=== PATIENT | male | born 1975 | race Caucasian/White ===

== ENCOUNTER 2021-08-01 15:42 | Outpatient (CLI) | payer SELFPAY | END 2021-08-01 15:43 | disposition critical access hospital (66) | LOC: EMS 15:42 | DX: R11.0 Nausea (principal); R53.1 Weakness | CPT/HCPCS: A0425; A0429 ==

== ENCOUNTER 2021-08-01 16:02 | Emergency (ER) | payer SELFPAY ==
[2021-08-01] MEDS ORDERED: SODIUM CHLORIDE 0.9% 1,000 ML IV STA ×3 (16:22→19:10)
[2021-08-01] MEDS ORDERED: THIAMINE INJ 100 MG in SODIUM CHLORIDE 0.9% 50 ML IV STA (16:22)
[2021-08-01] MEDS ORDERED: THIAMINE INJ 100 MG, MAGNESIUM SULFATE 2 GM, MULTIVITAMIN 10 ML, FOLIC ACID INJ 1 MG in... IV ONE ×5 (16:22)
[2021-08-01] MEDS ORDERED: ONDANSETRON 4 MG/2 ML VIAL IVP STA (16:22)
[2021-08-01] MEDS ORDERED: FAMOTIDINE 20 MG/2 ML VIAL IVP STA (16:22)
[2021-08-01 16:38] LABS: BASOPHILS % (AUTO) 0.2 %; EOSINOPHILS % (AUTO) 0.2 %; HCT - HEMATOCRIT 21.3 % (42.0-52.0); HGB - HEMOGLOBIN 7.8 g/dL (14.0-18.0); LYMPHOCYTES # (AUTO) 1.5 10^3/uL (1.5-3.5); LYMPHOCYTES % (AUTO) 11.6 %; MEAN CORPUSCULAR HEMOGLOBIN 33.2 pg (27.0-31.0); MEAN CORPUSCULAR HGB CONC 36.6 g/dL (32.0-36.0); MEAN CORPUSCULAR VOLUME 90.6 fL (80.0-94.0); MEAN PLATELET VOLUME 9.7 fL (7.4-11.4); MONOCYTES # (AUTO) 0.8 10^3/uL (0.0-1.0); NEUTROPHILS # (AUTO) 10.8 10^3/uL (1.5-6.6); NEUTROPHILS % (AUTO) 81.5 %; PLT - PLATELET COUNT 85 10^3/uL (130-450); RED BLOOD COUNT 2.35 10^6/uL (4.70-6.10); RED CELL DISTRIBUTION WIDTH 18.4 % (12.0-15.0); WHITE BLOOD COUNT 13.2 x10^3/uL (4.8-10.8)
[2021-08-01] MEDS ORDERED: IOVERSOL 320 100 ML VIAL IVP ONE (16:40)
[2021-08-01 16:55] LABS: ALBUMIN 2.1 g/dL (3.2-5.5); ALBUMIN/GLOBULIN RATIO 0.6 (1.0-2.2); ALKALINE PHOSPHATASE 170 IU/L (42-121); ALT ALANINE AMINOTRANSFERASE 53 IU/L (10-60); AST ASPARTATE AMINOTRANSFERASE 168 IU/L (10-42); BILIRUBIN,TOTAL 18.5 mg/dL (0.2-1.0); BUN - BLOOD UREA NITROGEN 50 mg/dL (6-20); CARBON DIOXIDE - CO2 30 mmol/L (21-32); CREATININE 2.6 mg/dL (0.6-1.2); ETOH - ETHANOL < 5.0 mg/dL; GFR - MDRD 27 (>89); GLUCOSE 108 mg/dL (70-100); LIPASE 67 U/L (22-51); MAGNESIUM 2.6 mg/dL (1.7-2.8); TOTAL PROTEIN 5.4 g/dL (6.7-8.2)
[2021-08-01 16:58] LABS: CHLORIDE 71 mmol/L (101-111); SODIUM 118 mmol/L (135-145)
[2021-08-01] MEDS ORDERED: POTASSIUM CHLOR 10 MEQ/100 ML 10 MEQ/100 ML BAG IV STA ×3 (17:42→20:51)
--- NOTE | 2021-08-01 18:11 | CT Report ---
PROCEDURE: Abdomen/Pelvis WO INDICATIONS: ABDOMINAL PAIN, ACUTE, NONLOCALIZED TECHNIQUE: Noncontrast 5 mm thick sections acquired from the diaphragms to the symphysis. 5 mm coronal and sagi ttal reformats were then performed. For radiation dose reduction, the following was used: automated exposure control, adjustment of mA and/or kV according to patient size. COMPARISON: None. FINDINGS: Image quality: Excellent. ABDOMEN: Lung bases: Lung bases are clear. Heart size is normal. Solid organs: Liver is heterogenous and shows multifocal wedge-shaped hypodensity. Spleen unremarkabl e. Gallbladder unremarkable. Pancreas is normal in contours. No adrenal nodules. Kidneys are norm al in size, without hydronephrosis or nephrolithiasis. Peritoneum and bowel: Diffuse colonic wall thickening noted without obstruction. Large amount of abdo gerry pelvic free fluid present. No free air. Nodes and vessels: No retroperitoneal or mesenteric adenopathy by size criteria. Aorta and inferior vena cava are normal in caliber. Miscellaneous: No ventral hernias. PELVIS: Genitourinary: Bladder wall thickness is normal. Miscellaneous: No inguinal hernias or adenopathy. Bones: No suspicious bony lesions. No vertebral body compression fractures. IMPRESSION: 1. Diffuse hepatic disease. Multifocal hepatic hypodensities is nonspecific but could reflect infecti ous or inflammatory disease such as a viral or autoimmune hepatitis, multifocal hepatic infarcts, and acute cirrhosis. Further imaging workup would include hepatic protocol contrast CT/MR. 2. Moderate abdominal and pelvic ascites. 3. Diffuse colonic wall thickening may be reactive or infectious Reviewed by: Johnson Wynn MD on 08/01/2021 5:10 PM [facility] Approved by: Johnson Wynn MD on 08/01/2021 5:10 PM [place] Station ID: [id number]
--- NOTE | 2021-08-01 18:53 | ED Physician Documentation ---
PD HPI NVD - Stated complaint Stated Complaint: ETOH - Chief complaint Chief Complaint: Abd Pain - History obtained from History obtained from: Patient, Family - History of Present Illness Timing - onset: How many weeks ago (Now 1-2 weeks of persistent vomiting with coffee ground appearance the past few days. Some dark stool output that is soft. General weakness. Noting more intense jaundice look.), How many months ago (He has noted nausea with poor p.o. intake and notable weight loss over several months. Has noticed jaundice as well. Seen at [facility] in [place] mid June with elevated bilirubin of 4.[address] showing possible liver mass and cirrhosis. He did not follow-up. Continues alcohol use.) Timing - duration: Weeks, Months Timing - details: Gradual onset, Still present Associated symptoms: Abdominal pain (upper abd), Hematemesis (coffee ground), Melena (the past several days), Loss of appetite, Weight loss (for few months, several sizes smaller new pants). No: Fever, Near syncope / syncope Contributing factors: Alcohol use (chronic). No: Sick contact, Anticoagulated Improved by: No: Vomiting Worsened by: Eating. No: Breathing Similar symptoms before: Has not had sx before Recently seen: Emergency Dept (june, seen at [facility] for abd pain/jaundice and leg infection. Did not follow up after that visit.) Review of Systems Constitutional: denies: Fever, Chills Nose: denies: Rhinorrhea / runny nose, Congestion Throat: denies: Sore throat Cardiac: reports: Pedal edema (mild bilateral). denies: Chest pain / pressure Respiratory: denies: Dyspnea, Cough GI: reports: Abdominal Pain (upper abd), Nausea, Vomiting (for weeks), Hematemesis (coffee ground.), Bloody / black stool (dark stools for several days to a week). denies: Constipation Neurologic: reports: Generalized weakness, Near syncope (lightheaded with standing.). denies: Focal weakness, Numbness, Altered mental status Psychiatric: denies: Depressed Endocrine: reports: Weight loss Immunocompromised: denies: Immunocompromised PD PAST MEDICAL HISTORY - Past Medical History Past Medical History: Yes Cardiovascular: None Respiratory: None Endocrine/Autoimmune: None GI: GERD, GI bleed, Pancreatitis, Cirrhosis : None - Past Surgical History Past Surgical History: No - Present Medications Home Medications: Ambulatory Orders Medication Instructions Recorded Confirmed Home Medications Unobtainable 08/01/21 08/01/21 [HOME MEDICATIONS UNOBTAINABLE] - Allergies Allergies/Adverse Reactions: Allergies Allergy/AdvReac Type Severity Reaction Status Date / Time morphine Allergy Anaphylaxis Verified 08/01/21 17:42 - Social History Does the pt smoke?: Yes Smoking Status: Current every day smoker Does the pt drink ETOH?: Yes ETOH Use: Beer Does the pt have substance abuse?: No - Immunizations Immunizations are current?: No - POLST Patient has POLST: No PD ED PE NORMAL - Vitals Vital signs reviewed: Yes - General General: Alert and oriented X 3, Well developed/nourished, Other (coffee ground appearing fluid around his mouth and cox. Notably jaundice. ) - HEENT HEENT: Pharynx benign - Neck Neck: Supple, no meningeal sign, No adenopathy - Cardiac Cardiac: RRR (mild tachycardia.) - Respiratory Respiratory: Clear bilaterally - Abdomen Abdomen: Soft, Non distended, Other (Liver and feels enlarged to palpation and percussion with tenderness. Also epigastric tender without any percussion nor rebound.). No: Normal bowel sounds (decreased) - Back Back: No CVA TTP - Derm Derm: Warm and dry. No: Normal color (markedly jaundice.) - Extremities Extremities: Other (1+ edema in both lower legs. Chronic skin thickening c/w dermatitis/weathering. ) - Neuro Neuro: Alert and oriented X 3, No motor deficit, Normal speech Results - Vitals Vitals: Vital Signs - 24 hr 08/01/21 08/01/21 08/01/21 16:09 16:38 17:29 Temperature 36.7 C Heart Rate 105 H 101 H 77 Respiratory 22 30 H 16 Rate Blood Pressure 107/64 124/68 O2 Saturation 100 100 100 08/01/21 08/01/21 17:59 18:34 Temperature Heart Rate 103 H 87 Respiratory 20 20 Rate Blood Pressure 115/99 H 114/67 O2 Saturation 100 98 Oxygen O2 Source Room air - Labs Labs: Laboratory Tests 08/01/21 08/01/21 08/01/21 16:30 16:30 16:30 WBC 13.2 H RBC 2.35 L Hgb 7.8 L Hct 21.3 L MCV 90.6 MCH 33.2 H MCHC 36.6 H RDW 18.4 H Plt Count 85 L MPV 9.7 Neut # (Auto) 10.8 H Lymph # (Auto) 1.5 [place] # (Auto) 0.8 Eos # (Auto) 0.0 Baso # (Auto) 0.0 Absolute Nucleated RBC 0.00 Nucleated RBC % 0.0 Sodium 118 L* Potassium 2.0 L* Chloride 71 L* Carbon Dioxide 30 Anion Gap 17.0 H BUN 50 H Creatinine 2.6 H Estimated GFR (MDRD) 27 L Glucose 108 H Calcium 8.0 L Magnesium 2.6 Total Bilirubin 18.5 H AST 168 H ALT 53 Alkaline Phosphatase 170 H Ammonia Total Protein 5.4 L Albumin 2.1 L Globulin 3.3 Albumin/Globulin Ratio 0.6 L Lipase 67 H TSH Ethyl Alcohol < 5.0 Blood Type B NEGATIVE Antibody Screen NEGATIVE 08/01/21 08/01/21 16:30 16:30 WBC RBC Hgb Hct MCV MCH MCHC RDW Plt Count MPV Neut # (Auto) Lymph # (Auto) [place] # (Auto) Eos # (Auto) Baso # (Auto) Absolute Nucleated RBC Nucleated RBC % Sodium Potassium Chloride Carbon Dioxide Anion Gap BUN Creatinine Estimated GFR (MDRD) Glucose Calcium Magnesium Total Bilirubin AST ALT Alkaline Phosphatase Ammonia 32.2 Total Protein Albumin Globulin Albumin/Globulin Ratio Lipase TSH 1.36 Ethyl Alcohol Blood Type Antibody Screen Departure - Departure Clinical Impression: Nausea vomiting and diarrhea, Weight loss, Jaundice, Alcoholic liver failure, Liver cirrhosis, Upper GI bleeding, Hyponatremia, Hypokalemia, SYDNEY (acute kidney injury) Condition: Stable Record reviewed to determine appropriate education?: Yes
[2021-08-01] MEDS ORDERED: cefTRIAXone 1 GM VIAL IVP STA (19:09)
[2021-08-01] MEDS ORDERED: PANTOPRAZOLE 40 MG VIAL IVP STA (19:09)
[2021-08-01 19:12] LABS: INR 3.2 (0.8-1.2); PT - PROTHROMBIN TIME 35.6 secs (9.9-12.6)
[2021-08-01 19:20] LABS: PARTIAL THROMBOPLASTIN TIME 53.9 secs (24.9-33.3)
[2021-08-01 19:32] LABS: MUDS CUTOFF CONCENTRATIONS CUTOFF CONC BELOW:
[2021-08-01 19:34] LABS: GLUCOSE, URINE (UA) NEGATIVE (NEGATIVE); KETONES,URINE (UA) TRACE mg/dL (NEGATIVE); LEUKOCYTE ESTERASE, URINE NEGATIVE (NEGATIVE); NITRITE,URINE NEGATIVE (NEGATIVE); OCCULT BLOOD,URINE NEGATIVE (NEGATIVE); PROTEIN,URINE NEGATIVE (NEGATIVE); UROBILINOGEN,URINE 1 (NORMAL) E.U./dL (NORMAL)
[2021-08-01 19:38] LABS: BILIRUBIN,URINE LARGE (NEGATIVE); CLARITY,URINE CLEAR (CLEAR); ICTOTEST,URINE POSITIVE
[2021-08-01 19:52] LABS: AMPHETAMINE SCREEN,URINE NEGATIVE (NEGATIVE); BARBITURATE SCREEN,UR NEGATIVE (NEGATIVE); BENZODIAZEPINES SCREEN, URINE NEGATIVE (NEGATIVE); COCAINE SCREEN URINE NEGATIVE (NEGATIVE); METHADONE SCREEN, URINE NEGATIVE (NEGATIVE); METHAMPHETAMINES SCREEN, URINE NEGATIVE (NEGATIVE); OPIATE SCREEN, URINE NEGATIVE (NEGATIVE); OXYCODONE SCREEN, URINE NEGATIVE (NEGATIVE); PROPOXYPHENE SCREEN, URINE NEGATIVE (NEGATIVE); THC CANNABINOID SCREEN, URINE POSITIVE (NEGATIVE); TRICYCLIC ANTIDEPRESSANT,URINE NEGATIVE (NEGATIVE)
[2021-08-01 20:17] LABS: B. PARAPERTUSSIS- RESP PCR PAN NOT DETECTED; B. PERTUSSIS- RESP PCR PANEL NOT DETECTED; C. PNEUMONIAE- RESP PCR PANEL NOT DETECTED; CORONAVIRUS 229E-RESP PCR NOT DETECTED; CORONAVIRUS HKU1-RESP PCR NOT DETECTED; CORONAVIRUS NL63-RESP PCR NOT DETECTED; CORONAVIRUS OC43-RESP PCR NOT DETECTED; HUMAN METAPNEUMOVIRUS NOT DETECTED; INFLUENZA A- RESP PCR PANEL NOT DETECTED; INFLUENZA B - RESP PCR PANEL NOT DETECTED; M. PNEUMONIAE- RESP PCR PANEL NOT DETECTED; PARAINFLUENZA VIRUS 1 NOT DETECTED; PARAINFLUENZA VIRUS 2 NOT DETECTED; PARAINFLUENZA VIRUS 3 NOT DETECTED; PARAINFLUENZA VIRUS 4 NOT DETECTED; RHINOVIRUS/ENTEROVIRUS NOT DETECTED; RSV- RESP PCR PANEL NOT DETECTED; SARS-CoV-2 -RESP PCR PANEL NOT DETECTED
[2021-08-01] MEDS ORDERED: OCTREOTIDE 100 MCG/ML VIAL IVP STA (20:23)
[2021-08-01] MEDS ORDERED: OCTREOTIDE 500 MCG in SODIUM CHLORIDE 0.9% 100ML 95 ML IV STA (20:23)
[2021-08-01] MEDS ORDERED: PHYTONADIONE 10 MG/ML AMP SUBQ STA (20:25)
--- NOTE | 2021-08-01 20:27 | ED Physician Documentation ---
ED Addendum - Addendum Addendum: 08/01/21 20:27 Patient was signed out to me by Dr. Cedillo awaiting potential transfer. In the meantime I have started the patient on Protonix, octreotide, given Rocephin and vitamin K. We will continue to monitor and plan to recheck a CBC at about 930. Patient is still hemodynamically stable. He is on IV fluids as well. We are continuing to replace the potassium and slowly correct his sodium. 08/01/21 22:12 The patient's hemoglobin has dropped under 7, we will transfuse 2 units of packed red blood cells. There are no ICU beds available [facility]. I spoke with Dr. Zelalem Mendoza, [facility] gm video. He states that if the patient's sodium can be above 120, they may be able to take the patient in an acute care bed. ALEISHA Carrasco at the emergency [place] had spoken to Dr. Cedillo earlier and states that the patient is not a transplant candidate. The patient's sodium is now 122. We will recontact the emergency [facility] to see if they can potentially accept this patient. The patient will be signed out to Dr. Pearson, [facility] emergency department physician for further care. This document was made in part using voice recognition software. While efforts are made to proofread this document, sound alike and grammatical errors may occur.
[2021-08-01] MEDS ORDERED: OCTREOTIDE 100 MCG/ML VIAL ONE ×2 (20:50→20:56)
[2021-08-01] MEDS ORDERED: SODIUM CHLORIDE 0.9% 100ML 100 ML IV ONE (20:57)
[2021-08-01 21:17] LABS: BASOPHILS % (AUTO) 0.2 %; EOSINOPHILS % (AUTO) 0.2 %; LYMPHOCYTES # (AUTO) 1.4 10^3/uL (1.5-3.5); LYMPHOCYTES % (AUTO) 11.2 %; MEAN CORPUSCULAR VOLUME 91.2 fL (80.0-94.0); MEAN PLATELET VOLUME 10.3 fL (7.4-11.4); MONOCYTES # (AUTO) 0.8 10^3/uL (0.0-1.0); MONOCYTES % (AUTO) 6.3 %; NEUTROPHILS # (AUTO) 10.2 10^3/uL (1.5-6.6); NEUTROPHILS % (AUTO) 81.6 %; PLT - PLATELET COUNT 69 10^3/uL (130-450); RED BLOOD COUNT 1.94 10^6/uL (4.70-6.10); RED CELL DISTRIBUTION WIDTH 18.3 % (12.0-15.0); WHITE BLOOD COUNT 12.6 x10^3/uL (4.8-10.8)
[2021-08-01 21:21] LABS: HCT - HEMATOCRIT 17.7 % (42.0-52.0); HGB - HEMOGLOBIN 6.2 g/dL (14.0-18.0)
[2021-08-01 21:35] LABS: ALBUMIN 1.7 g/dL (3.2-5.5); ALBUMIN/GLOBULIN RATIO 0.6 (1.0-2.2); BILIRUBIN,TOTAL 15.2 mg/dL (0.2-1.0); CALCIUM 7.2 mg/dL (8.5-10.3); CREATININE 2.3 mg/dL (0.6-1.2); TOTAL PROTEIN 4.5 g/dL (6.7-8.2)
[2021-08-01 21:37] LABS: POTASSIUM 2.4 mmol/L (3.5-5.0)
[2021-08-01] MEDS ORDERED: POTASSIUM CHLOR 10 MEQ/100 ML 10 MEQ/100 ML BAG IV ONE (22:18)
[2021-08-02 00:02] LABS: HGB - HEMOGLOBIN 7.4 g/dL (14.0-18.0)
--- NOTE | 2021-08-02 00:40 | ED Physician Documentation ---
ED Addendum - Addendum Addendum: 08/02/21 00:35 d/w Apryl, transfer center coordinator at who would like to coordinate transfer, however Dr. Danny Peña, hospitalist at overnight is uncomfortable taking patient tonight given the high patient volumes, understaffing and overload at and all [facility]. Apryl requests us to call back with AM labs around 8am and transfer center states they will try to accept him in the morning. Per our [facility], [facility], [facility], [facility], [facility] all said no beds available. on waitlist for everybody except [facility] and [facility] who are not doing waitlists at this time. 08/02/21 02:33 d/w Dr. Matthew Morrison at [facility] for transfer to PCU. They will call back with a bed number when available. Disposition transfer Condition Serious Impression 1. GIB 2. alcoholic cirrhosis 3. liver masses
[2021-08-02 03:58] VITALS: BP 112/74
== END 2021-08-02 03:54 | disposition short-term general hospital (02) ==
LOC: ED 16:02
DX: K70.40 Alcoholic hepatic failure without coma (principal); N17.9 Acute kidney failure, unspecified; E87.1 Hypo-osmolality and hyponatremia; R63.4 Abnormal weight loss; R16.0 Hepatomegaly, not elsewhere classified; E87.6 Hypokalemia; K70.30 Alcoholic cirrhosis of liver without ascites; K92.2 Gastrointestinal hemorrhage, unspecified; F17.200 Nicotine dependence, unspecified, uncomplicated; Z20.822 Contact with and (suspected) exposure to COVID-19
CPT/HCPCS: 0202U; 36415; 36430; 74176; 80053; 80306; 80320; 81003; 82140; 82272; 83690; 83735; 83930; 83935; 84300; 84425; 84443; 85014; 85018; 85025; 85610; 85730; 86850; 86900; 86901; 86920; 96361; 96365; 96366; 96367; 96368; 96372; 96375; 96376; 99284; 99285; J2354; J3411; J7040; P9016; 81001; 87086

== ENCOUNTER 2021-08-02 05:27 | Outpatient (CLI) | payer SELFPAY | END 2021-08-02 05:28 | disposition short-term general hospital (02) | LOC: EMS 05:27 | PROVIDERS: ATTEND Emergency Medicine | DX: K92.2 Gastrointestinal hemorrhage, unspecified (principal); K70.30 Alcoholic cirrhosis of liver without ascites; R16.0 Hepatomegaly, not elsewhere classified | CPT/HCPCS: A0425; A0428 ==

== ENCOUNTER 2021-08-28 05:18 | Outpatient (CLI) | payer SELFPAY | END 2021-08-28 05:19 | disposition critical access hospital (66) | LOC: EMS 05:18 | DX: R10.9 Unspecified abdominal pain (principal); R11.0 Nausea | CPT/HCPCS: A0425; A0429 ==

== ENCOUNTER 2021-08-28 05:33 | Emergency (ER) | payer SELFPAY ==
[2021-08-28 06:12] LABS: BASOPHILS # (AUTO) 0.1 10^3/uL (0.0-0.1); BASOPHILS % (AUTO) 0.6 %; EOSINOPHILS # (AUTO) 0.3 10^3/uL (0.0-0.7); EOSINOPHILS % (AUTO) 2.6 %; LYMPHOCYTES # (AUTO) 2.2 10^3/uL (1.5-3.5); LYMPHOCYTES % (AUTO) 18.1 %; MEAN CORPUSCULAR HGB CONC 34.2 g/dL (32.0-36.0); MEAN CORPUSCULAR VOLUME 96.6 fL (80.0-94.0); MEAN PLATELET VOLUME 9.3 fL (7.4-11.4); MONOCYTES # (AUTO) 1.3 10^3/uL (0.0-1.0); MONOCYTES % (AUTO) 11.1 %; NEUTROPHILS % (AUTO) 67.1 %; PLT - PLATELET COUNT 199 10^3/uL (130-450); RED BLOOD COUNT 2.06 10^6/uL (4.70-6.10)
[2021-08-28 06:26] LABS: HCT - HEMATOCRIT 19.9 % (42.0-52.0); HGB - HEMOGLOBIN 6.8 g/dL (14.0-18.0); SLIDE REVIEW? Indicated
[2021-08-28 06:28] LABS: ALBUMIN 3.2 g/dL (3.2-5.5); ALBUMIN/GLOBULIN RATIO 1.3 (1.0-2.2); CALCIUM 8.5 mg/dL (8.5-10.3); CREATININE 1.9 mg/dL (0.6-1.2); POTASSIUM 3.6 mmol/L (3.5-5.0); TOTAL PROTEIN 5.6 g/dL (6.7-8.2)
[2021-08-28 06:31] LABS: PLATELET ESTIMATE, MANUAL NORMAL (130-450,000) (NORMAL); PLATELET MORPHOLOGY NORMAL APPEARANCE (NORMAL); WBC MORPHOLOGY (MULTIPLE) NORMAL APPEARANCE (NORMAL)
[2021-08-28] MEDS ORDERED: PANTOPRAZOLE 40 MG VIAL IVP STA (06:35)
[2021-08-28 06:47] LABS: GLUCOSE, URINE (UA) NEGATIVE (NEGATIVE); KETONES,URINE (UA) NEGATIVE (NEGATIVE); LEUKOCYTE ESTERASE, URINE NEGATIVE (NEGATIVE); NITRITE,URINE NEGATIVE (NEGATIVE); OCCULT BLOOD,URINE NEGATIVE (NEGATIVE); PH,URINE 6.5 PH (5.0-7.5); PROTEIN,URINE NEGATIVE (NEGATIVE); UROBILINOGEN,URINE 0.2 (NORMAL) E.U./dL (NORMAL)
[2021-08-28 06:54] LABS: BILIRUBIN,URINE SMALL (NEGATIVE); CLARITY,URINE CLEAR (CLEAR); ICTOTEST,URINE POSITIVE
[2021-08-28] MEDS ORDERED: OCTREOTIDE 500 MCG in SODIUM CHLORIDE 0.9% 100ML 95 ML IV STA (07:24)
[2021-08-28] MEDS ORDERED: cefTRIAXone 1 GM in SODIUM CHLORIDE 0.9% MINIBAG 100 ML IV STA (07:24)
[2021-08-28] MEDS ORDERED: OCTREOTIDE 100 MCG/ML VIAL IVP STA (07:24)
--- NOTE | 2021-08-28 07:28 | ED Physician Documentation ---
PD HPI ABD PAIN - Stated complaint Stated Complaint: ABD PX/NAUSEA - Chief complaint Chief Complaint: Abd Pain - History obtained from History obtained from: Patient - History of Present Illness Timing - onset: Last night, How many days ago (last few days, has noted some soreness in throat when taking his Potassium supplement pill. Other meds okay. Has ongoing crampy mid to upper abd pains. Baseline loose stool from lactulose. Denies vomiting; has had some nausea.) Timing - details: Gradual onset, Still present, Intermittant (notes throat pain with just taking the potassium supplements.), Waxing and waning (has mid abd cramps intermittently.) Quality: Cramping, Aching Location: Epigastric, Periumbilical Radiation: No: Chest, Lower back Improved by: Eating Worsened by: Other (taking some meds). No: Eating Associated symptoms: Nausea, Diarrhea (loose ongoing with use of lactulose.). No: Fever, Vomiting, Constipation Recently seen: Emergency Dept (4 weeks ago for GI bleed and liver failure. [facility]fer to [facility] (bed available there). Have not gotten discharge summary from them as yet today.), Admitted (to for several days. IV meds and bllod with improved renal function, lytes, and ammonia. EGD by GI showed gastritis and portal HTN but no varices.) Review of Systems Constitutional: reports: Fatigue. denies: Fever, Chills Nose: denies: Rhinorrhea / runny nose, Congestion Throat: denies: Sore throat Cardiac: denies: Chest pain / pressure, Palpitations Respiratory: reports: Dyspnea. denies: Cough, Wheezing GI: reports: Abdominal Pain, Nausea, Diarrhea. denies: Vomiting, Constipation, Bloody / black stool (he says is brown to garcia colored.) : denies: Dysuria Neurologic: reports: Generalized weakness. denies: Focal weakness, Numbness, Near syncope, Altered mental status, Headache PD PAST MEDICAL HISTORY - Past Medical History Past Medical History: Yes Cardiovascular: None Respiratory: None Endocrine/Autoimmune: None GI: GERD, GI bleed, Pancreatitis, Cirrhosis : None - Past Surgical History Past Surgical History: No - Present Medications Home Medications: Ambulatory Orders Medication Instructions Recorded Confirmed Folic Acid 1 mg PO DAILY 08/28/21 08/28/21 Isosorbide Mononitrate [Isosorbide 30 mg PO DAILY 08/28/21 08/28/21 Mononitrate ER] Lactulose [Enulose] 30 ml PO TID 08/28/21 08/28/21 Metoprolol Succinate [Toprol Xl] 25 mg PO DAILY 08/28/21 08/28/21 Omeprazole Magnesium 20 mg PO BID 08/28/21 08/28/21 Potassium Chloride 20 meq PO DAILY 08/28/21 08/28/21 Potassium Chloride Oral Soln 20 meq PO DAILY 30 Days #450 ml 08/28/21 [Potassium Chloride] Torsemide 20 mg PO DAILY 08/28/21 08/28/21 - Allergies Allergies/Adverse Reactions: Allergies Allergy/AdvReac Type Severity Reaction Status Date / Time morphine Allergy Anaphylaxis Verified 08/28/21 05:45 - Social History Does the pt smoke?: Yes Smoking Status: Current every day smoker Does the pt drink ETOH?: Yes Does the pt have substance abuse?: No - Immunizations Immunizations are current?: No - POLST Patient has POLST: No PD ED PE NORMAL - Vitals Vital signs reviewed: Yes - General General: Alert and oriented X 3, No acute distress. No: Well developed/nourished (frail and thin, chronic skin dermatitis giovani on trunk and gluteals. No acute rash. ) - HEENT HEENT: Pharynx benign. No: Moist mucous membranes - Neck Neck: Supple, no meningeal sign, No adenopathy - Cardiac Cardiac: RRR, No murmur - Respiratory Respiratory: Clear bilaterally - Abdomen Abdomen: Soft, Non distended, Other (decreased bowel sounds. Nondistended. Liver feels enlarged to palpation. ) - Male Male : Deferred - Rectal Rectal: Other (soft stool in vault. Brown color, and will send to lab for testing. ) - Back Back: No CVA TTP - Derm Derm: Normal color, Warm and dry - Extremities Extremities: Normal ROM s pain, No calf tenderness / cord - Neuro Neuro: Alert and oriented X 3, No motor deficit (but some general mild weakness. ), Normal speech Results - Vitals Vitals: Vital Signs - 24 hr 08/28/21 08/28/21 08/28/21 05:35 05:48 06:12 Temperature 36.4 C L Heart Rate 66 118 H 66 Respiratory 18 20 16 Rate Blood Pressure 98/58 L 98/58 L 101/64 O2 Saturation 98 100 99 08/28/21 08/28/21 08/28/21 06:52 07:53 08:01 Temperature 36.4 C L 36.4 C L 36.4 C L Heart Rate 63 63 63 Respiratory 20 15 9 L Rate Blood Pressure 101/62 99/58 L 120/78 O2 Saturation 99 100 08/28/21 08/28/21 08/28/21 08:11 09:13 09:32 Temperature 36.6 C 36.5 C Heart Rate 61 62 69 Respiratory 12 13 18 Rate Blood Pressure 102/68 94/56 L 95/54 L O2 Saturation 100 08/28/21 11:04 Temperature Heart Rate 52 L Respiratory 16 Rate Blood Pressure 93/60 O2 Saturation 96 Oxygen O2 Source Room air - Labs Labs: Microbiology 08/28/21 05:55 Occult Blood - Final Stool Laboratory Tests 08/28/21 08/28/21 08/28/21 05:55 05:55 05:55 WBC 12.0 H RBC 2.06 L Hgb 6.8 L* Hct 19.9 L* MCV 96.6 H MCH 33.0 H MCHC 34.2 RDW 25.0 H Plt Count 199 MPV 9.3 Neut # (Auto) 8.0 H Lymph # (Auto) 2.2 [place] # (Auto) 1.3 H Eos # (Auto) 0.3 Baso # (Auto) 0.1 Absolute Nucleated RBC 0.00 Nucleated RBC % 0.0 Manual Slide Review Indicated WBC Morphology NORMAL APPEARANCE Platelet Estimate NORMAL (130-450,000) Platelet Morphology NORMAL APPEARANCE RBC Morph Micro Appear 2+ POIKILOCYTOSIS Sodium 137 Potassium 3.6 Chloride 99 L Carbon Dioxide 25 Anion Gap 13.0 BUN 42 H Creatinine 1.9 H Estimated GFR (MDRD) 39 L Glucose 112 H Calcium 8.5 Magnesium Total Bilirubin 12.0 H AST 70 H ALT 28 Alkaline Phosphatase 202 H Ammonia Total Protein 5.6 L Albumin 3.2 Globulin 2.4 Albumin/Globulin Ratio 1.3 Lipase 198 H Urine Color Urine Clarity Urine pH Ur Specific [place] Urine Protein Urine Glucose (UA) Urine Ketones Urine Occult Blood Urine Nitrite Urine Bilirubin Urine Urobilinogen Ur Leukocyte Esterase Ur Microscopic Review Urine Culture Comments Blood Type B NEGATIVE Antibody Screen NEGATIVE Crossmatch IS Only See Detail 08/28/21 08/28/21 08/28/21 05:55 06:40 07:11 WBC RBC Hgb Hct MCV MCH MCHC RDW Plt Count MPV Neut # (Auto) Lymph # (Auto) [place] # (Auto) Eos # (Auto) Baso # (Auto) Absolute Nucleated RBC Nucleated RBC % Manual Slide Review WBC Morphology Platelet Estimate Platelet Morphology RBC Morph Micro Appear Sodium Potassium Chloride Carbon Dioxide Anion Gap BUN Creatinine Estimated GFR (MDRD) Glucose Calcium Magnesium 2.8 Total Bilirubin AST ALT Alkaline Phosphatase Ammonia 66.2 H Total Protein Albumin Globulin Albumin/Globulin Ratio Lipase Urine Color DARK YELLOW Urine Clarity CLEAR Urine pH 6.5 Ur Specific [place] 1.010 Urine Protein NEGATIVE Urine Glucose (UA) NEGATIVE Urine Ketones NEGATIVE Urine Occult Blood NEGATIVE Urine Nitrite NEGATIVE Urine Bilirubin SMALL H Urine Urobilinogen 0.2 (NORMAL) Ur Leukocyte Esterase NEGATIVE Ur Microscopic Review NOT INDICATED Urine Culture Comments NOT INDICATED Blood Type Antibody Screen Crossmatch IS Only 08/28/21 10:25 WBC RBC Hgb 7.6 L Hct 21.8 L MCV MCH MCHC RDW Plt Count MPV Neut # (Auto) Lymph # (Auto) [place] # (Auto) Eos # (Auto) Baso # (Auto) Absolute Nucleated RBC Nucleated RBC % Manual Slide Review WBC Morphology Platelet Estimate Platelet Morphology RBC Morph Micro Appear Sodium Potassium Chloride Carbon Dioxide Anion Gap BUN Creatinine Estimated GFR (MDRD) Glucose Calcium Magnesium Total Bilirubin AST ALT Alkaline Phosphatase Ammonia Total Protein Albumin Globulin Albumin/Globulin Ratio Lipase Urine Color Urine Clarity Urine pH Ur Specific [place] Urine Protein Urine Glucose (UA) Urine Ketones Urine Occult Blood Urine Nitrite Urine Bilirubin Urine Urobilinogen Ur Leukocyte Esterase Ur Microscopic Review Urine Culture Comments Blood Type Antibody Screen Crossmatch IS Only PD MEDICAL DECISION MAKING - ED course Complexity details: reviewed old records (discharge summary from finally obtained. He had slow improvement in labs while there once on meds. EGC with gastritis and portal HTN, but no varices. discharged on multiple meds.), reviewed results (guiac negative. Hbg low and repeat after unit blood is above 7. ), re-evaluated patient (still conversant and interacts well. ), considered differential (main complaint of weakness and also trouble swallowing the potassium pill (which admittedly is large). ), d/w patient Departure - Departure Disposition: 01 Home, Self Care Clinical Impression: Generalized weakness Anemia Qualifiers: Anemia type: unspecified type Qualified Code(s): D64.9 - Anemia, unspecified Liver failure Qualifiers: Liver failure chronicity: unspecified chronicity Hepatic coma status: without hepatic coma Qualified Code(s): K72.90 - Hepatic failure, unspecified without coma Condition: Stable Record reviewed to determine appropriate education?: Yes Prescriptions: Potassium Chloride Oral Soln [Potassium Chloride] 20 meq PO DAILY 30 Days #450 ml Comments: Continue with your current medications. I wrote a prescription to change your oral potassium tablets that you are having difficulty swallowing into a liquid potassium supplement instead so that would make it easier. We did give you a unit of blood here because your blood count had gotten lower. No signs of blood in your stool so it does not look to be ongoing bleeding but probably just poor functioning of your marrow to produce more. Your bilirubin and liver function tests are actually little bit better than they had been before but still quite elevated from normal. Continue with your current medications for that.
[2021-08-28] MEDS ORDERED: OCTREOTIDE 500 MCG in SODIUM CHLORIDE 0.9% 100ML 99 ML IV STA (07:35)
[2021-08-28] MEDS ORDERED: SODIUM CHLORIDE 0.9% 1,000 ML IV STA (07:40)
[2021-08-28] MEDS ORDERED: ONDANSETRON 4 MG/2 ML VIAL IVP STA (07:58)
[2021-08-28] MEDS ORDERED: POTASSIUM CHLOR 10 MEQ/100 ML 10 MEQ/100 ML BAG IV ONE (07:59)
[2021-08-28] MEDS ORDERED: LACTULOSE 10 GM /15 ML UDC PO STA (09:37)
[2021-08-28 10:29] LABS: HCT - HEMATOCRIT 21.8 % (42.0-52.0); HGB - HEMOGLOBIN 7.6 g/dL (14.0-18.0)
[2021-08-28 11:06] VITALS: BP 93/60
== END 2021-08-28 12:32 | disposition home or self-care (01) ==
LOC: EDUNIT# → ED 05:33
DX: K72.90 Hepatic failure, unspecified without coma (principal); D64.9 Anemia, unspecified; R53.1 Weakness; F17.200 Nicotine dependence, unspecified, uncomplicated
CPT/HCPCS: 36415; 36430; 80053; 81003; 82140; 82272; 83690; 83735; 85014; 85018; 85025; 86850; 86900; 86901; 86920; 96365; 96366; 96367; 96375; 96376; 99284; 99285; A9270; J2354; P9016; 81001; 87086